=== PATIENT | female | born 1950 | race Caucasian/White ===

== ENCOUNTER 2016-10-07 13:53 | Emergency (ER) | payer MEDICARE, OTHER ==
[~2016-10-07] VITALS: Ht 162.6 cm; Wt 124.7 kg
[~2016-10-07 13:53] MED LIST: ALLO300T79 OR; AMITRIP PO; BACL10TA OR; COLC0.6T OR; DIGO0.1262; DILT30TA24 OR; ENO120SY; GABA300C8 OR; HYDR-1421; METO-5 OR; WARF1TAB
[2016-10-07 14:43] LABS: Basophils # (auto) 0 uL; Basophils % (auto) 0.1 % (0.0-2.0); Eosinophils # (auto) 0 uL; Hematocrit 38.5 % (36.0-46.0); Hemoglobin 12.9 g/dL (12.2-16.2); Lymphocytes # (auto) 1.6 uL; Mean Corpuscular Hemoglobin 31.1 pg (28.0-32.0); Mean Corpuscular Hgb Conc. 33.4 g/dL (32.0-36.0); Mean Corpuscular Volume 93.2 fL (80.0-100.0); Mean Platelet Volume 8.3 fL (7.4-10.4); Monocytes # (auto) 0.4 uL; Monocytes % (auto) 2.2 % (0.0-12.0); Neutrophils # (auto) 15.9 uL; Neutrophils % (auto) 88.7 % (37.0-80.0); Platelet Count (auto) 286 10^3/uL (140-450); Red Cell Distribution Width 14.6 % (11.6-16.0); White Blood Cell 17.9 10^3/uL (4.4-10.8)
[2016-10-07 15:05] LABS: Albumin 2.4 g/dL (3.4-5.0); Alkaline Phosphatase 76 U/L (45-117); Anion Gap 10 (5-15); Aspartate Aminotransferase 16 U/L (15-37); BUN/Creatinine Ratio 71.2; Bilirubin, Total 0.6 mg/dL (0.2-1.0); Blood Urea Nitrogen 37 mg/dL (7-18); Calcium 8.2 mg/dL (8.5-10.1); Carbon Dioxide 28 mmol/L (21-32); Chloride 103 mmol/L (98-107); Glucose 160 mg/dL (74-106); Magnesium 2.5 mg/dL (1.6-2.6); Potassium 4.2 mmol/L (3.5-5.1); Sodium 141 mmol/L (136-145); Total Protein 6.4 g/dL (6.4-8.2)
[2016-10-07 15:33] LABS: GFR African American 151 mL/min; GFR Non-African American 125 mL/min
[2016-10-07] MEDS ORDERED: SODIUM CHLORIDE 0.9% 1,000 ML IV ONE ×2 (16:21→23:30)
[2016-10-07] MEDS ORDERED: cefTRIAXone 1GM/50ML D5W 50 ML IV ONE (16:30)
[2016-10-07] MEDS ORDERED: metroNIDAZOLE 500MG/100ML 100 ML IV ONE (18:30)
[2016-10-07] MEDS ORDERED: PANTOPRAZOLE SODIUM 80 MG in SODIUM CHL 0.9% 60 ML IV ONE (18:30)
[2016-10-07 19:13] LABS: Basophils # (auto) 0.1 uL; Basophils % (auto) 0.6 % (0.0-2.0); Eosinophils # (auto) 0 uL; Hematocrit 35.2 % (36.0-46.0); Hemoglobin 11.6 g/dL (12.2-16.2); Lymphocytes % (auto) 13.2 % (10.0-50.0); Mean Corpuscular Hemoglobin 30.9 pg (28.0-32.0); Mean Corpuscular Hgb Conc. 33.1 g/dL (32.0-36.0); Mean Corpuscular Volume 93.3 fL (80.0-100.0); Mean Platelet Volume 8.5 fL (7.4-10.4); Monocytes # (auto) 0.6 uL; Monocytes % (auto) 4.2 % (0.0-12.0); Neutrophils # (auto) 12.3 uL; Platelet Count (auto) 316 10^3/uL (140-450); Red Cell Distribution Width 14.2 % (11.6-16.0); White Blood Cell 14.9 10^3/uL (4.4-10.8)
[2016-10-07] MEDS ORDERED: ONDANSETRON HCL 4 MG/2 ML VIAL ONE (21:07)
[2016-10-07] MEDS ORDERED: ONDANSETRON HCL 4 MG/2 ML VIAL IV ONE (21:15)
[2016-10-07 23:11] LABS: Urine Bilirubin Negative (Negative); Urine Blood Negative /uL (Negative); Urine Color Yellow (Yellow); Urine Glucose Normal (Normal); Urine Ketone TRACE (Negative); Urine Nitrite Negative (Negative); Urine RBC 3 /hpf (0 - 4); Urine Squamous Epithelial Cell FEW /hpf (<5); Urine Urobilinogen Normal (Negative)
[2016-10-08 02:00] VITALS: BP 126/75
[2016-10-08] MEDS ORDERED: MORPHINE SULFATE 4 MG/ML SYRG IV ONE (02:15)
== END 2016-10-08 02:40 | disposition short-term general hospital (02) ==
LOC: EDUNIT# 13:53 → ER 13:53 → EDBD 13:53 → ER 10-08 02:30
DX: D72.829 Elevated white blood cell count, unspecified (principal); E46 Unspecified protein-calorie malnutrition; Z68.42 Body mass index [BMI] 45.0-49.9, adult
CPT/HCPCS: 36415; 71010; 74176; 80053; 81001; 83605; 83735; 84484; 85025; 87040; 93005; 93970; 96361; 96365; 96367; 96375; 99285; C9113; J0696; J2270; J2405; J3490; J7030